=== PATIENT | female | born 1940 | race African-American/Black ===

== ENCOUNTER 2018-08-26 10:58 | Inpatient (IN) | payer MEDICARE, MEDICAID ==
[~2018-08-26] VITALS: Ht 162.6 cm; Wt 99.6 kg
[~2018-08-26 10:58] MED LIST: AMLO1TAB64; ASPI-986 PO; ATEN50TA PO; CIPR-263; DIPH50CA4; GLIM4TAB2; LORA-249; METF-416; MOBI7; NITR0.4T SL; PRAS10TA6 PO; ROSU20TA; ROSU20TA PO; THE3; VALS160T2 PO
[2018-08-26] MEDS ORDERED: ALBUTEROL (0.083%) 2.5MG/3ML NEB HHN STA (11:17)
[2018-08-26] MEDS ORDERED: IPRATROPIUM BROMIDE (0.02%) 0.5MG/2.5ML NEB HHN STA (11:17)
[2018-08-26] MEDS ORDERED: MAGNESIUM 2 G PREMIX 50 ML IV STA (11:17)
[2018-08-26] MEDS ORDERED: METHYLPREDNISOLONE SOD SUCC 125 MG/2 ML VIAL IV STA (11:17)
[2018-08-26 11:47] LABS: BASOPHILS % 0.6 % (0.0-2.0); EOSINOPHILS % 0.9 % (0.0-5.0); HEMOGLOBIN. 14.2 g/dL (12.0-16.0); LYMPHOCYTES % 13.9 % (20.0-50.0); MEAN CORPUSCULAR HEMOGLOBIN 29.2 pg (28.0-32.0); MEAN CORPUSCULAR VOLUME 85.9 fL (81.0-99.0); MEAN PLATELET VOLUME 8.6 fl (7.4-10.4); MONOCYTES % 10.1 % (2.0-8.0); NEUTROPHILS % 74.5 % (40.0-76.0); PLATELET 250 x1000/uL (130-400); RED BLOOD CELL COUNT 4.89 mill/uL (4.2-5.4); RED CELL DISTRIBUTION WIDTH 15.2 % (11.6-14.6)
[2018-08-26 11:53] LABS: CHLORIDE 105 mEq/L (98-107)
[2018-08-26 11:55] LABS: PROTHROMBIN TIME 10.3 sec (9.6-11.0)
[2018-08-26 11:59] LABS: THEOPHYLLINE 6.7 ug/mL (10-20)
[2018-08-26] MEDS ORDERED: AZITHROMYCIN 500 MG TABLET PO ONE (13:30)
[2018-08-26] MEDS ORDERED: IPRATROPIUM/ALBUTEROL 0.5-3(2.5)MG/3ML NEB HHN PRN (13:30)
[2018-08-26] MEDS ORDERED: BUDESONIDE 0.5MG/2ML NEB HHN SCH (13:30)
[2018-08-26] MEDS: ACETYLCYSTEINE 100MG/ML 10% VIAL 4ML INH SCH (13:35)
[2018-08-26] MEDS ORDERED: CLONIDINE 0.1MG TABLET PO PRN (14:45)
[2018-08-26] MEDS ORDERED: CLONIDINE 0.2MG TABLET PO PRN (14:45)
[2018-08-26] MEDS ORDERED: AZITHROMYCIN 500 MG TABLET PO NR (14:45)
[2018-08-26 14:46] VITALS: BP 126/62
[2018-08-26] MEDS ORDERED: THEO400T PO (15:12)
[2018-08-26] MEDS ORDERED: DOCU-150 PO (15:12)
[2018-08-26] MEDS ORDERED: NEBI5TAB3 PO (15:12)
[2018-08-26] MEDS ORDERED: VALA500T55 PO (15:12)
[2018-08-26] MEDS ORDERED: POTA10CA42 PO (15:12)
[2018-08-26] MEDS ORDERED: CHOL200074 PO (15:12)
[2018-08-26] MEDS ORDERED: LOSA25TA3 PO (15:12)
[2018-08-26] MEDS ORDERED: LOSA50TA20 PO (15:12)
[2018-08-26] MEDS ORDERED: LEVO25TA7 PO (15:12)
[2018-08-26] MEDS ORDERED: GLIM2TAB2 PO (15:12)
[2018-08-26] MEDS ORDERED: ASPI-1159 PO (15:12)
[2018-08-26 16:00] VITALS: BP_SYST 126; BP_SYST 153; BP_DIAS 62; BP_DIAS 88
[2018-08-26] MEDS ORDERED: DEXTROSE 50% WATER 50ML SYRINGE IV PRN (16:15)
[2018-08-26] MEDS: LOSARTAN POTASSIUM 25 MG TABLET PO SCH ×3 (16:43→20:57)
[2018-08-26] MEDS: ASPIRIN 81MG EC TABLET PO SCH (16:43)
[2018-08-26] MEDS: BLOOD SUGAR DIAGNOSTIC STRIP TEST SCH ×2 (17:10→20:58)
[2018-08-26] MEDS: INSULIN LISPRO 100 UNITS/ML SUBCUT SCH ×2 (18:38→20:57)
[2018-08-26] MEDS: DILTIAZEM HCL 60MG TABLET PO SCH (19:49)
[2018-08-26 20:00] VITALS: BP 156/89
[2018-08-26] MEDS: IPRATROPIUM/ALBUTEROL 0.5-3(2.5)MG/3ML NEB HHN SCH (21:08)
[2018-08-26] MEDS: BUDESONIDE 0.5MG/2ML NEB HHN SCH (21:08)
[2018-08-27] VITALS: BP 108/62
[2018-08-27] MEDS: IPRATROPIUM/ALBUTEROL 0.5-3(2.5)MG/3ML NEB HHN SCH ×6 (01:11→19:47)
[2018-08-27] MEDS: ACETYLCYSTEINE 100MG/ML 10% VIAL 4ML INH SCH ×3 (01:11→16:20)
[2018-08-27 04:00] VITALS: BP 143/79
[2018-08-27] MEDS ORDERED: INSULIN GLARGINE UD 100 UNITS/ML SYR SUBCUT NR (06:15)
[2018-08-27] MEDS: BLOOD SUGAR DIAGNOSTIC STRIP TEST SCH ×4 (06:16→20:59)
[2018-08-27] MEDS: GLIMEPIRIDE 2MG TABLET PO SCH ×2 (06:55→17:48)
[2018-08-27] MEDS: INSULIN LISPRO 100 UNITS/ML SUBCUT SCH ×4 (06:56→21:08)
[2018-08-27] MEDS: DILTIAZEM HCL 60MG TABLET PO SCH ×3 (06:56→21:07)
[2018-08-27 07:09] LABS: BASOPHILS % 0.2 % (0.0-2.0); HEMATOCRIT. 39.9 % (36.0-48.0); HEMOGLOBIN. 13.5 g/dL (12.0-16.0); LYMPHOCYTES % 7.6 % (20.0-50.0); MEAN CORPUSCULAR HEMOGLOBIN 29.1 pg (28.0-32.0); MEAN CORPUSCULAR VOLUME 85.9 fL (81.0-99.0); MEAN PLATELET VOLUME 8.5 fl (7.4-10.4); MONOCYTES % 4.8 % (2.0-8.0); NEUTROPHILS % 87.4 % (40.0-76.0); PLATELET 304 x1000/uL (130-400); RED BLOOD CELL COUNT 4.64 mill/uL (4.2-5.4); RED CELL DISTRIBUTION WIDTH 15.4 % (11.6-14.6)
[2018-08-27 08:00] VITALS: BP 144/75
[2018-08-27] MEDS: BUDESONIDE 0.5MG/2ML NEB HHN SCH ×2 (08:10→19:48)
[2018-08-27 08:25] LABS: CHLORIDE 101 mEq/L (98-107)
[2018-08-27 08:41] LABS: CREATINE KINASE 461 IU/L (26-192)
[2018-08-27 08:43] LABS: CREATINE KINASE MB FRACTION 6.9 ng/mL (0.5-3.6)
[2018-08-27] MEDS: ASPIRIN 81MG EC TABLET PO SCH (08:57)
[2018-08-27] MEDS: AZITHROMYCIN 250 MG TABLET PO SCH (08:57)
[2018-08-27 11:14] LABS: CLARITY URINE CLEAR (CLEAR); COLOR URINE YELLOW (YELLOW); KETONES URINE NEGATIVE (NEGATIVE); LEUKOCYTE ESTERASE URINE NEGATIVE (NEGATIVE); NITRITE URINE NEGATIVE (NEGATIVE); OCCULT BLOOD URINE NEGATIVE (NEGATIVE); PH URINE 5.5 (4.5-8.0); PROTEIN URINE NEGATIVE (NEGATIVE); SPECIFIC GRAVITY URINE 1.015 (1.005-1.030); UROBILINOGEN URINE 0.2 E.U./dL (0.2-1.0)
[2018-08-27 12:00] VITALS: BP 104/66
[2018-08-27] MEDS: GUAIFENESIN/DM 600MG/30MG ER TAB 12HR PO SCH ×2 (15:10→21:07)
[2018-08-27 16:00] VITALS: BP 141/76
[2018-08-27 20:00] VITALS: BP 134/73
[2018-08-27] MEDS ORDERED: NON FORMULARY PATIENT HOME MED XX SCH (21:00)
[2018-08-27] MEDS: LOSARTAN POTASSIUM 25 MG TABLET PO SCH (21:07)
[2018-08-27] MEDS: LATANOPROST 0.005% OPHTH DROPS 2.5ML OP SCH (21:08)
[2018-08-28] VITALS (7 sets, daily range): BP systolic 125–153; BP diastolic 65–82
[2018-08-28] MEDS: ACETYLCYSTEINE 100MG/ML 10% VIAL 4ML INH SCH ×2 (00:23→16:15)
[2018-08-28] MEDS: IPRATROPIUM/ALBUTEROL 0.5-3(2.5)MG/3ML NEB HHN SCH ×6 (00:23→21:16)
[2018-08-28] MEDS: BLOOD SUGAR DIAGNOSTIC STRIP TEST SCH ×4 (05:51→20:52)
[2018-08-28] MEDS: GLIMEPIRIDE 2MG TABLET PO SCH ×2 (06:34→17:22)
[2018-08-28] MEDS: DILTIAZEM HCL 60MG TABLET PO SCH ×3 (06:35→21:32)
[2018-08-28] MEDS: INSULIN LISPRO 100 UNITS/ML SUBCUT SCH ×4 (06:35→20:56)
[2018-08-28] MEDS: BUDESONIDE 0.5MG/2ML NEB HHN SCH ×2 (07:33→21:16)
[2018-08-28 07:36] LABS: BASOPHILS % 0.6 % (0.0-2.0); EOSINOPHILS % 1.3 % (0.0-5.0); HEMATOCRIT. 39.8 % (36.0-48.0); HEMOGLOBIN. 13.4 g/dL (12.0-16.0); LYMPHOCYTES % 17.4 % (20.0-50.0); MEAN CORPUSCULAR VOLUME 86.2 fL (81.0-99.0); MEAN PLATELET VOLUME 8.5 fl (7.4-10.4); MONOCYTES % 7.7 % (2.0-8.0); PLATELET 299 x1000/uL (130-400); RED BLOOD CELL COUNT 4.62 mill/uL (4.2-5.4); RED CELL DISTRIBUTION WIDTH 15.5 % (11.6-14.6)
[2018-08-28 07:44] LABS: CHLORIDE 106 mEq/L (98-107)
[2018-08-28] MEDS: ASPIRIN 81MG EC TABLET PO SCH (08:54)
[2018-08-28] MEDS: GUAIFENESIN/DM 600MG/30MG ER TAB 12HR PO SCH ×2 (08:54→20:55)
[2018-08-28] MEDS: AZITHROMYCIN 250 MG TABLET PO SCH (08:55)
[2018-08-28] MEDS: LOSARTAN POTASSIUM 25 MG TABLET PO SCH ×2 (08:55→20:55)
[2018-08-28] MEDS: LATANOPROST 0.005% OPHTH DROPS 2.5ML OP SCH (20:55)
== END 2018-08-28 21:50 | disposition home or self-care (01) | DRG 193 ==
LOC: ER 10:58 → 8WST 12:03 → EDBEDREQ 12:06 → ENRESERV 13:43 → CANRESERV 13:43
PROVIDERS: ADMIT Internal Medicine Endocrinology, Diabetes & Metabolism; ATTEND Internal Medicine Endocrinology, Diabetes & Metabolism
DX: J18.9 Pneumonia, unspecified organism (principal); J96.00 Acute respiratory failure, unspecified whether with hypoxia or hypercapnia; J44.0 Chronic obstructive pulmonary disease with (acute) lower respiratory infection; J44.1 Chronic obstructive pulmonary disease with (acute) exacerbation; J45.901 Unspecified asthma with (acute) exacerbation; E11.65 Type 2 diabetes mellitus with hyperglycemia; E66.9 Obesity, unspecified; E78.5 Hyperlipidemia, unspecified; G47.33 Obstructive sleep apnea (adult) (pediatric); I10 Essential (primary) hypertension; I25.10 Atherosclerotic heart disease of native coronary artery without angina pectoris; J20.9 Acute bronchitis, unspecified; T38.0X5A Adverse effect of glucocorticoids and synthetic analogues, initial encounter; Y92.89 Other specified places as the place of occurrence of the external cause; Z79.4 Long term (current) use of insulin; Z80.3 Family history of malignant neoplasm of breast; I25.2 Old myocardial infarction; Z82.49 Family history of ischemic heart disease and other diseases of the circulatory system; Z83.3 Family history of diabetes mellitus; Z85.42 Personal history of malignant neoplasm of other parts of uterus; Z86.718 Personal history of other venous thrombosis and embolism; Z90.49 Acquired absence of other specified parts of digestive tract; Z90.710 Acquired absence of both cervix and uterus; Z95.5 Presence of coronary angioplasty implant and graft; Z88.0 Allergy status to penicillin; Z88.2 Allergy status to sulfonamides; Z88.5 Allergy status to narcotic agent; Z91.041 Radiographic dye allergy status; Z79.84 Long term (current) use of oral hypoglycemic drugs; Z79.82 Long term (current) use of aspirin; Z79.899 Other long term (current) drug therapy; Z79.2 Long term (current) use of antibiotics; Z68.37 Body mass index [BMI] 37.0-37.9, adult
CPT/HCPCS: 36415; 71045; 80048; 80198; 82550; 82553; 82962; 83605; 83735; 83880; 84145; 84484; 85379; 87070; 87804; 93005; 93970; 94640; 96365; 99291; J1815; J2930; J3475; J7608; J7611; J7620; J7626

== ENCOUNTER 2019-02-21 08:47 | Inpatient (IN) | payer MEDICARE, MEDICAID ==
[~2019-02-21] VITALS: Ht 162.6 cm; Wt 103.6 kg
[2019-02-21] VITALS (7 sets, daily range): BP systolic 107–139; BP diastolic 61–89
[~2019-02-21 08:47] MED LIST changes: -AMLO1TAB64; -ASPI-986 PO; -ATEN50TA PO; +CHOL200074 PO; -CIPR-263; -DIPH50CA4; +DOCU-150 PO; -GLIM4TAB2; +LEVO25TA7 PO; -LORA-249; -METF-416; -MOBI7; +NEBI5TAB3 PO; -NITR0.4T SL; +POTA10CA42 PO; -PRAS10TA6 PO; -ROSU20TA; -ROSU20TA PO; -THE3; +THEO400T PO; +VALA500T55 PO; -VALS160T2 PO
[2019-02-21] MEDS ORDERED: LEVO50TA8 MT (09:46)
[2019-02-21] MEDS ORDERED: LOSA50TA41 MT (09:46)
[2019-02-21] MEDS ORDERED: DILT120C46 MT (09:46)
[2019-02-21] MEDS ORDERED: ATEN50TA MT (09:46)
[2019-02-21] MEDS ORDERED: GLIM4TAB2 MT (09:46)
[2019-02-21] MEDS ORDERED: ALBU18HF2 IH (09:46)
[2019-02-21] MEDS ORDERED: ASPI-1393 MT (09:46)
[2019-02-21] MEDS ORDERED: LORA10TA7 MT (09:46)
[2019-02-21] MEDS ORDERED: FAMOTIDINE 20MG/2ML VIAL IV ONE (09:51)
[2019-02-21] MEDS ORDERED: DIPHENHYDRAMINE 50MG/ML VIAL ONE (09:51)
[2019-02-21] MEDS ORDERED: MIDAZOLAM HCL 2 MG/2 ML VIAL ONE (09:52)
[2019-02-21] MEDS ORDERED: FENTANYL CITRATE/PF 50MCG/ML 2ML VIAL ONE (09:52)
[2019-02-21] MEDS ORDERED: HYDROCORTISONE SOD SUCCINATE 250 MG/2 ML VIAL ONE (09:52)
[2019-02-21] MEDS ORDERED: IODIXANOL 320MG/ML 100 ML BOTTLE IV ONE ×2 (09:53→11:27)
[2019-02-21] MEDS ORDERED: LIDOCAINE HCL 1% 20ML VIAL (Pyxis) INJ ONE (09:53)
[2019-02-21] MEDS ORDERED: ASPIRIN/SOD BICARB/CITRIC ACID 324MG TAB EFF ONE (10:10)
[2019-02-21] MEDS ORDERED: IOHEXOL-300 100 ML BOTTLE ONE (11:15)
[2019-02-21] MEDS ORDERED: HEPARIN SODIUM 1,000 UNIT/1ML VIAL IV ONE (11:30)
[2019-02-21] MEDS ORDERED: NICARDIPINE 100MCG/ML 10ML VIAL (CATH LAB) IV ONE (11:30)
[2019-02-21] MEDS ORDERED: NITROGLYCERIN 50MCG/ML 10ML VIAL (CATH LAB) IV ONE (11:30)
[2019-02-21] MEDS ORDERED: CLOPIDOGREL 75MG TABLET ONE (11:44)
[2019-02-21] MEDS ORDERED: ONDANSETRON HCL 4MG/2ML INJ IV PRN (12:00)
[2019-02-21] MEDS ORDERED: DEXTROSE 50% WATER 50ML SYRINGE IV PRN (12:00)
[2019-02-21] MEDS ORDERED: SODIUM CHLORIDE 0.45% 1,000 ML IV ONE (12:00)
[2019-02-21] MEDS ORDERED: MORPHINE SULFATE 4 MG/ML CPJ (NOT FOR IM USE) IV PRN (12:00)
[2019-02-21] MEDS ORDERED: CLOPIDOGREL 75MG TABLET PO SCH ×2 (12:00→13:00)
[2019-02-21] MEDS ORDERED: ATROPINE SULFATE 1MG/10ML SYR IV PRN (12:00)
[2019-02-21] MEDS ORDERED: NITROGLYCERIN OINT 1GM/INCH UDPKT TD ONE (12:08)
[2019-02-21] MEDS: INSULIN LISPRO 100 UNITS/ML SUBCUT SCH ×3 (12:37→21:47)
[2019-02-21] MEDS ORDERED: DILTIAZEM HCL 120MG CAPSULE CD 24HR PO SCH (12:45)
[2019-02-21] MEDS: BLOOD SUGAR DIAGNOSTIC STRIP TEST SCH ×3 (13:19→21:38)
[2019-02-21] MEDS: ASPIRIN 325MG TABLET PO SCH (13:37)
[2019-02-21] MEDS: LOSARTAN POTASSIUM 25 MG TABLET PO SCH ×2 (13:38→21:36)
[2019-02-21] MEDS: NEBIVOLOL HCL 5 MG TABLET PO SCH (18:42)
[2019-02-21] MEDS ORDERED: MAGNESIUM HYDROXIDE 400MG/5ML 30ML UDC PO PRN (20:15)
[2019-02-21] MEDS ORDERED: IPRATROPIUM/ALBUTEROL 0.5-3(2.5)MG/3ML NEB HHN PRN (20:15)
[2019-02-21] MEDS ORDERED: ATENOLOL 50 MG TABLET PO SCH (21:00)
[2019-02-22] VITALS (8 sets, daily range): BP systolic 100–159; BP diastolic 54–83
[2019-02-22] MEDS: ACETAMINOPHEN 325MG TABLET PO PRN ×2 (05:58→10:57)
[2019-02-22] MEDS: BLOOD SUGAR DIAGNOSTIC STRIP TEST SCH ×2 (06:01→11:51)
[2019-02-22 07:52] LABS: BASOPHILS % 0.8 % (0.0-2.0); EOSINOPHILS % 1.7 % (0.0-5.0); HEMATOCRIT. 38.8 % (36.0-48.0); HEMOGLOBIN. 12.8 g/dL (12.0-16.0); LYMPHOCYTES % 22.7 % (20.0-50.0); MEAN PLATELET VOLUME 8.3 fl (7.4-10.4); NEUTROPHILS % 64.8 % (40.0-76.0); PLATELET 251 x1000/uL (130-400); RED BLOOD CELL COUNT 4.41 mill/uL (4.2-5.4); RED CELL DISTRIBUTION WIDTH 15.3 % (11.6-14.6)
[2019-02-22] MEDS: ASPIRIN 325MG TABLET PO SCH (08:18)
[2019-02-22] MEDS: LOSARTAN POTASSIUM 25 MG TABLET PO SCH (08:19)
[2019-02-22] MEDS: NEBIVOLOL HCL 5 MG TABLET PO SCH (08:20)
[2019-02-22] MEDS: INSULIN LISPRO 100 UNITS/ML SUBCUT SCH ×2 (08:23→12:21)
[2019-02-22] MEDS ORDERED: CLOPIDOGREL 75MG TABLET PO SCH (09:00)
[2019-02-22 10:04] LABS: CHLORIDE 108 mEq/L (98-107)
== END 2019-02-22 15:12 | disposition home or self-care (01) | DRG 247 ==
LOC: CCL 08:47 → 3WST 08:48
PROVIDERS: ADMIT Specialist; ATTEND Specialist
PROC: 4A023N7 Measurement of Cardiac Sampling and Pressure, Left Heart, Percutaneous Approach (ICD-10-PCS; principal; 2019-02-21)
PROC: 027034Z Dilation of Coronary Artery, One Artery with Drug-eluting Intraluminal Device, Percutaneous Approach (ICD-10-PCS; 2019-02-21)
PROC: B2111ZZ Fluoroscopy of Multiple Coronary Arteries using Low Osmolar Contrast (ICD-10-PCS; 2019-02-21)
PROC: B2151ZZ Fluoroscopy of Left Heart using Low Osmolar Contrast (ICD-10-PCS; 2019-02-21)
DX: T82.855A Stenosis of coronary artery stent, initial encounter (principal); I25.10 Atherosclerotic heart disease of native coronary artery without angina pectoris; E11.9 Type 2 diabetes mellitus without complications; Z79.84 Long term (current) use of oral hypoglycemic drugs; E78.00 Pure hypercholesterolemia, unspecified; E66.9 Obesity, unspecified; G47.33 Obstructive sleep apnea (adult) (pediatric); J45.909 Unspecified asthma, uncomplicated; Z90.49 Acquired absence of other specified parts of digestive tract; Y83.8 Other surgical procedures as the cause of abnormal reaction of the patient, or of later complication, without mention of misadventure at the time of the procedure; I10 Essential (primary) hypertension; Z79.82 Long term (current) use of aspirin; Z90.710 Acquired absence of both cervix and uterus; Y92.89 Other specified places as the place of occurrence of the external cause; Z68.39 Body mass index [BMI] 39.0-39.9, adult
CPT/HCPCS: 36415; 80048; 82962; 85347; 92928; 93005; 93458; 94640; C1769; C1874; C1887; C1893; J1200; J1644; J1720; J1815; J2250; J3010; J3490; J7620; Q9967

== ENCOUNTER 2019-02-28 10:02 | Inpatient (IN) | payer MEDICARE, MEDICAID ==
[~2019-02-28] VITALS: Ht 167.6 cm; Wt 98.0 kg
[2019-02-28] VITALS (16 sets, daily range): BP systolic 123–157; BP diastolic 44–100
[~2019-02-28 10:02] MED LIST changes: +ALBU18HF2 IH; +ATEN50TA MT; +DILT120C46 MT; +GLIM4TAB2 MT; +LEVO50TA8 MT; +LORA10TA7 MT; +LOSA50TA41 MT
[2019-02-28] MEDS ORDERED: ASPIRIN 325MG EC TABLET PO ONE (10:30)
[2019-02-28] MEDS ORDERED: FENTANYL CITRATE/PF 50MCG/ML 2ML VIAL ONE (10:41)
[2019-02-28] MEDS ORDERED: LIDOCAINE HCL 1% 20ML VIAL (Pyxis) INJ ONE (10:41)
[2019-02-28] MEDS ORDERED: MIDAZOLAM HCL 2 MG/2 ML VIAL ONE (10:42)
[2019-02-28] MEDS ORDERED: ASPIRIN 81MG TABLET PO ONE (10:45)
[2019-02-28] MEDS ORDERED: FAMOTIDINE 20MG/2ML VIAL IV ONE (10:53)
[2019-02-28] MEDS ORDERED: DIPHENHYDRAMINE 50MG/ML VIAL ONE (10:53)
[2019-02-28] MEDS ORDERED: HYDROCORTISONE SOD SUCCINATE 250 MG/2 ML VIAL ONE (10:54)
[2019-02-28 11:01] LABS: BASOPHILS % 1.1 % (0.0-2.0); EOSINOPHILS % 3.4 % (0.0-5.0); HEMATOCRIT. 40.1 % (36.0-48.0); HEMOGLOBIN. 13.5 g/dL (12.0-16.0); LYMPHOCYTES % 22.3 % (20.0-50.0); MEAN CORPUSCULAR HEMOGLOBIN 29.5 pg (28.0-32.0); MEAN CORPUSCULAR VOLUME 87.6 fL (81.0-99.0); MEAN PLATELET VOLUME 8.4 fl (7.4-10.4); MONOCYTES % 9.5 % (2.0-8.0); NEUTROPHILS % 63.7 % (40.0-76.0); PLATELET 248 x1000/uL (130-400); RED BLOOD CELL COUNT 4.58 mill/uL (4.2-5.4); RED CELL DISTRIBUTION WIDTH 15.1 % (11.6-14.6)
[2019-02-28 11:09] LABS: CHLORIDE 107 mEq/L (98-107)
[2019-02-28] MEDS ORDERED: IODIXANOL 320MG/ML 100 ML BOTTLE IV ONE ×2 (11:16→11:42)
[2019-02-28] MEDS ORDERED: CLOPIDOGREL 75MG TABLET ONE (12:09)
[2019-02-28] MEDS ORDERED: ATROPINE SULFATE 1MG/10ML SYR IV PRN (12:15)
[2019-02-28] MEDS ORDERED: MORPHINE SULFATE 2 MG/ML CPJ (NOT FOR IM USE) IV PRN (12:15)
[2019-02-28] MEDS ORDERED: ALBUTEROL (0.083%) 2.5MG/3ML NEB HHN PRN (12:15)
[2019-02-28] MEDS ORDERED: DEXTROSE 50% WATER 50ML SYRINGE IV PRN (12:15)
[2019-02-28] MEDS ORDERED: CLOPIDOGREL 75MG TABLET PO ONE (12:15)
[2019-02-28] MEDS ORDERED: ONDANSETRON HCL 4MG/2ML INJ IV PRN (12:15)
[2019-02-28] MEDS ORDERED: SODIUM CHLORIDE 0.45% 1,000 ML IV ONE (13:00)
[2019-02-28] MEDS ORDERED: IPRATROPIUM/ALBUTEROL 0.5-3(2.5)MG/3ML NEB HHN PRN (13:00)
[2019-02-28] MEDS: BLOOD SUGAR DIAGNOSTIC STRIP TEST SCH ×3 (13:42→20:53)
[2019-02-28] MEDS: INSULIN LISPRO 100 UNITS/ML SUBCUT SCH ×3 (13:46→20:52)
[2019-02-28] MEDS: LORATADINE 10MG TABLET PO SCH (15:13)
[2019-02-28] MEDS ORDERED: NITROGLYCERIN 50MCG/ML 10ML VIAL (CATH LAB) IV ONE (15:15)
[2019-02-28] MEDS ORDERED: HEPARIN SODIUM 1,000 UNIT/1ML VIAL IV ONE (15:15)
[2019-02-28] MEDS ORDERED: NICARDIPINE 100MCG/ML 10ML VIAL (CATH LAB) IV ONE (15:15)
[2019-02-28] MEDS ORDERED: MONTELUKAST SODIUM 10MG TABLET PO SCH (17:00)
[2019-02-28] MEDS: DILTIAZEM HCL 30MG TABLET PO SCH ×2 (17:20→23:00)
[2019-02-28] MEDS: METHYLPREDNISOLONE SOD SUCC 40 MG/ML VIAL IV SCH (20:52)
[2019-02-28] MEDS: FAMOTIDINE 20MG/2ML VIAL IV SCH (20:52)
[2019-02-28] MEDS: LOSARTAN POTASSIUM 25 MG TABLET PO SCH (20:53)
[2019-02-28] MEDS: IPRATROPIUM/ALBUTEROL 0.5-3(2.5)MG/3ML NEB HHN SCH (21:19)
[2019-02-28] MEDS: BUDESONIDE 0.5MG/2ML NEB HHN SCH (21:19)
[2019-03-01] VITALS (12 sets, daily range): BP systolic 108–152; BP diastolic 44–96
[2019-03-01] MEDS: GUAIFENESIN 200MG/10ML SUGAR FREE UDC PO PRN ×2 (00:17→06:11)
[2019-03-01] MEDS: IPRATROPIUM/ALBUTEROL 0.5-3(2.5)MG/3ML NEB HHN SCH ×3 (01:50→14:18)
[2019-03-01] MEDS: INSULIN LISPRO 100 UNITS/ML SUBCUT SCH ×4 (03:07→12:17)
[2019-03-01] MEDS: METHYLPREDNISOLONE SOD SUCC 40 MG/ML VIAL IV SCH (03:13)
[2019-03-01] MEDS: ACETAMINOPHEN 325MG TABLET PO PRN ×2 (04:04→12:17)
[2019-03-01] MEDS: DILTIAZEM HCL 30MG TABLET PO SCH ×2 (06:13→12:17)
[2019-03-01] MEDS: BLOOD SUGAR DIAGNOSTIC STRIP TEST SCH ×2 (06:13→12:30)
[2019-03-01 06:55] LABS: HEMATOCRIT. 38.9 % (36.0-48.0); MEAN CORPUSCULAR HEMOGLOBIN 29.5 pg (28.0-32.0); MEAN CORPUSCULAR VOLUME 88.3 fL (81.0-99.0); MEAN PLATELET VOLUME 8.6 fl (7.4-10.4); PLATELET 233 x1000/uL (130-400); RED BLOOD CELL COUNT 4.41 mill/uL (4.2-5.4)
[2019-03-01 08:10] LABS: CHLORIDE 103 mEq/L (98-107)
[2019-03-01] MEDS: FAMOTIDINE 20MG/2ML VIAL IV SCH (08:46)
[2019-03-01] MEDS: LOSARTAN POTASSIUM 25 MG TABLET PO SCH (08:46)
[2019-03-01] MEDS: LORATADINE 10MG TABLET PO SCH (08:47)
[2019-03-01] MEDS ORDERED: ASPIRIN 325MG TABLET PO SCH (09:00)
[2019-03-01] MEDS ORDERED: CLOPIDOGREL 75MG TABLET PO SCH (09:00)
[2019-03-01] MEDS ORDERED: NEBIVOLOL HCL 5 MG TABLET PO SCH (09:00)
[2019-03-01] MEDS: BUDESONIDE 0.5MG/2ML NEB HHN SCH (10:26)
[2019-03-01 14:10] LABS: PLATELET ESTIMATE NORMAL
[2019-03-01] MEDS ORDERED: GUAIFENESIN 600MG ER TABLET PO SCH (21:00)
[2019-03-01] MEDS ORDERED: INSULIN GLARGINE UD 100 UNITS/ML SYR SUBCUT SCH ×2 (22:00)
== END 2019-03-01 18:03 | disposition home health service (06) | DRG 250 ==
LOC: ER 10:02 → 3WST 10:03
PROVIDERS: ADMIT Specialist; ATTEND Specialist
PROC: 4A023N7 Measurement of Cardiac Sampling and Pressure, Left Heart, Percutaneous Approach (ICD-10-PCS; principal; 2019-02-28)
PROC: 02703ZZ Dilation of Coronary Artery, One Artery, Percutaneous Approach (ICD-10-PCS; 2019-02-28)
PROC: B2151ZZ Fluoroscopy of Left Heart using Low Osmolar Contrast (ICD-10-PCS; 2019-02-28)
PROC: B2111ZZ Fluoroscopy of Multiple Coronary Arteries using Low Osmolar Contrast (ICD-10-PCS; 2019-02-28)
DX: T82.855A Stenosis of coronary artery stent, initial encounter (principal); J96.00 Acute respiratory failure, unspecified whether with hypoxia or hypercapnia; I25.110 Atherosclerotic heart disease of native coronary artery with unstable angina pectoris; J68.0 Bronchitis and pneumonitis due to chemicals, gases, fumes and vapors; Y83.8 Other surgical procedures as the cause of abnormal reaction of the patient, or of later complication, without mention of misadventure at the time of the procedure; Y92.89 Other specified places as the place of occurrence of the external cause; E11.65 Type 2 diabetes mellitus with hyperglycemia; E66.9 Obesity, unspecified; E78.00 Pure hypercholesterolemia, unspecified; E78.5 Hyperlipidemia, unspecified; G47.33 Obstructive sleep apnea (adult) (pediatric); I10 Essential (primary) hypertension; I25.2 Old myocardial infarction; Z80.3 Family history of malignant neoplasm of breast; Z79.82 Long term (current) use of aspirin; Z82.49 Family history of ischemic heart disease and other diseases of the circulatory system; Z83.3 Family history of diabetes mellitus; Z85.42 Personal history of malignant neoplasm of other parts of uterus; Z86.718 Personal history of other venous thrombosis and embolism; Z90.49 Acquired absence of other specified parts of digestive tract; Z90.710 Acquired absence of both cervix and uterus; Z88.0 Allergy status to penicillin; Z88.2 Allergy status to sulfonamides; Z88.5 Allergy status to narcotic agent; M17.10 Unilateral primary osteoarthritis, unspecified knee; T38.0X5A Adverse effect of glucocorticoids and synthetic analogues, initial encounter; T59.811A Toxic effect of smoke, accidental (unintentional), initial encounter; Z68.34 Body mass index [BMI] 34.0-34.9, adult
CPT/HCPCS: 36415; 80048; 82962; 83036; 84439; 84443; 84484; 85347; 92920; 93005; 93454; 94640; 96374; 99285; C1725; C1769; C1887; C1893; J1200; J1644; J1720; J1815; J2250; J2920; J3010; J3490; J7611; J7620; J7626; Q9967

== ENCOUNTER → 2022-12-22 | Day surgery (SDC) | payer MEDICARE, MEDICAID ==
[~2022-12-22] VITALS: Ht 168.9 cm; Wt 97.5 kg
[~2022-12-22] MED LIST changes: +ACETAMINOPHEN 650MG/20.3ML UDC PO NR; +ASPI-1497 PO; +ASPIRIN/SOD BICARB/CITRIC ACID 324MG TAB EFF ONE; +ATENOLOL 25MG TABLET PO NR; +BRIM10DR2 EACHEYE; +CIPR2.5D20 LEFTEYE; +DAPA10TA PO; +DIPHENHYDRAMINE 50MG/ML VIAL ONE; +DULA1.5P SQ; +FAMOTIDINE 20MG/2ML VIAL IV ONE; +FENTANYL CITRATE/PF 50MCG/ML 2ML VIAL ONE; +FURO-152 PO; -GLIM4TAB2 MT; +GLIM4TAB36 MT; +HEPARIN 1000 UNITS/ML 10ML ONE; +HYDR-459 PO; +HYDROCORTISONE SOD SUCCINATE 100 MG/2 ML VIAL ONE; +IODIXANOL 320MG/ML 100 ML BOTTLE IV ONE; +KETO5DRO38 EACHEYE; +LIDOCAINE HCL 1% 10 MG/ML 10ML VIAL ONE; +LINA145C PO; +LORA2ORA MT; +MIDAZOLAM HCL 2 MG/2 ML VIAL ONE; +MORPHINE SULFATE 2 MG/ML CPJ (NOT FOR IM USE) IV NR; +ONDANSETRON HCL 4MG/2ML INJ IV PRN; -POTA10CA42 PO; +POTA10CA43 PO; +SIME125C PO
[2022-12-22 09:51] LABS: BASOPHILS % 1.2 % (0.0-2.0); EOSINOPHILS % 3.5 % (0.0-5.0); LYMPHOCYTES % 18.1 % (20.0-50.0); MEAN CORPUSCULAR HGB CONC 33.4 g/dL (31.0-37.0); MEAN PLATELET VOLUME 8.1 fl (7.4-10.4); MONOCYTES % 9.7 % (2.0-8.0); NEUTROPHILS % 67.5 % (40.0-76.0); PLATELET 282 x1000/uL (130-400); RED BLOOD CELL COUNT 4.83 mill/uL (4.2-5.4); RED CELL DISTRIBUTION WIDTH 16.4 % (11.6-14.6); WHITE BLOOD COUNT 11.3 x1000/uL (4.5-11.0)
[2022-12-22 10:05] LABS: POTASSIUM 4.3 mEq/L (3.5-5.1)
[2022-12-22 10:06] LABS: CALCIUM 9.3 mg/dL (8.5-10.1)
[2022-12-22 10:12] LABS: CREATININE 1.4 mg/dL (0.6-1.3)
[2022-12-22 16:22] VITALS: PULSE 106
== END | disposition home or self-care (01) ==
LOC: CCL 09:03
PROVIDERS: ATTEND Specialist
DX: I25.10 Atherosclerotic heart disease of native coronary artery without angina pectoris (principal); Z79.899 Other long term (current) drug therapy; Z98.890 Other specified postprocedural states; Z88.0 Allergy status to penicillin; Z88.2 Allergy status to sulfonamides; Z91.041 Radiographic dye allergy status; Z88.8 Allergy status to other drugs, medicaments and biological substances
CPT/HCPCS: 80048; 82962; 85025; 36415; 93458; J3010; Q9967; J1200; J3490 ×2; J1644 ×2; J1720; J2250; Z7610 ×5